=== PATIENT | female | born 1995 | race Caucasian/White ===

== ENCOUNTER 2019-03-13 06:59 | Outpatient (CLI) | payer BC ==
--- NOTE | 2019-03-13 10:07 | MRI ---
MRI CERVICAL SPINE WITHOUT CONTRAST: HISTORY: Left-sided paracervical spinal pain and neck pain. FINDINGS: There is loss of cervical lordosis. The vertebral body heights and marrow signal are maintained. No focal disk herniation, central canal stenosis, or neural foraminal stenosis is seen. The cervical s alfonso cord demonstrates normal course, caliber, and signal. No tonsillar herniation is seen. The pa raspinal musculature is normal. IMPRESSION: No significant abnormalities are identified. This study was interpreted in consultation with Dr. Alexi Blankenship (neuroradiologist), who concurs. POS: [facility]
== END 2019-03-13 07:00 | disposition home or self-care (01) ==
LOC: SCSMRI 06:59
DX: M54.2 Cervicalgia (principal)
CPT/HCPCS: 72141